=== PATIENT | male | born 1965 | race Caucasian/White ===

== ENCOUNTER 2017-10-17 14:52 | Emergency (ER) | payer MEDICAID ==
[~2017-10-17] VITALS: Ht 172.7 cm; Wt 101.6 kg
[2017-10-17 15:13] VITALS: Ht 172.7 cm; Wt 101.6 kg
[2017-10-17 17:01] VITALS: BP 205/111
== END 2017-10-17 17:01 | disposition home or self-care (01) ==
LOC: ED 14:52
DX: S20.211A Contusion of right front wall of thorax, initial encounter (principal); S70.11XA Contusion of right thigh, initial encounter; I10 Essential (primary) hypertension; W22.8XXA Striking against or struck by other objects, initial encounter; Y93.89 Activity, other specified; Y92.89 Other specified places as the place of occurrence of the external cause; Y99.8 Other external cause status